=== PATIENT | male | born 1940 | race Caucasian/White ===

== ENCOUNTER → 2023-12-29 09:13 | Outpatient (REF) | payer OTHER, SELFPAY | LOC: DHSLP 09:13 | PROVIDERS: ATTENDING PHYSICIAN Internal Medicine; FAMILY PHYSICIAN Student in an Organized Health Care Education/Training Program | DX: G47.33 Obstructive sleep apnea (adult) (pediatric) (principal); G47.31 Primary central sleep apnea | CPT/HCPCS: 95811 ==

== ENCOUNTER 2025-01-25 09:47 | Emergency (ER) | payer OTHER, SELFPAY ==
[2025-01-25 09:48] VITALS: BP 156/68
--- NOTE | 2025-01-25 10:47 | ED.GENMED ---
History of Present Illness
General
Chief Complaint: Dizziness
Source: patient
Exam Limitations: none
Time Seen by Provider: 01/25/25 10:26
History of Present Illness
History of Present Illness:
See MDM
Past History
Past History
ED Past Medical History: CAD and HTN
ED Past Surgical History: Cardiac and Orthopedic
Social History
Tobacco: Non-smoker
Alcohol: None
Drug: None
Phy Exam
Physical Exam
Physical Exam:
See MDM
Course
Orders/Labs/Results
Orders:
Orders
01/25/25 09:51
Electrocardiogram (*1) Urgent
Reason for Study: Vertigo / Dizzy
EKG- Treatment ONCE
01/25/25 10:44
0.9% Sodium Chloride 1000 ml [Nss] 1,000 ml IV BOLUS
Meclizine [Antivert] 25 mg PO NOW STA
01/25/25 11:15
Complete Blood Count/With Diff Urgent
Comprehensive Metabolic Panel Urgent
Abnormal Lab Results
01/25/25
11:15
RBC 4.41 L 10^6/uL
(4.70-6.10)
MCV 95.9 H fL
(80.0-94.0)
MCH 32.4 H pg
(27.0-31.0)
MPV 11.3 H fL
(7.4-10.4)
Creatinine 0.6 L mg/dL
(0.7-1.3)
Glucose 127 H mg/dl
(70-99)
01/25/25 11:15
01/25/25 11:15
Vital Signs
Initial and Last Documented VS:
Initial Vital Signs
Temp Pulse Resp BP Pulse Ox
97.5 F 54 16 156/68 98
01/25/25 09:48 01/25/25 09:48 01/25/25 09:48 01/25/25 09:48 01/25/25 09:48
Last Documented Vital Signs
Temp Pulse Resp BP Pulse Ox
97.5 F 57 16 117/81 98
01/25/25 09:48 01/25/25 11:18 01/25/25 11:18 01/25/25 11:18 01/25/25 11:18
MDM/Problems Addressed
Differential Diagnosis Includes:
Note:
CHIEF COMPLAINT(S)
Dizziness
HISTORY OF PRESENT ILLNESS
The patient is an 84-year-old male who presented with dizziness, reported as more of a lightheaded sensation rather than vertigo but he does acknowledge that parts of the room were spinning. The condition started when the patient woke up and has
been persistent. The patient reported no headache, no hearing loss, and no recent viral illnesses. He indicated that symptoms worsen when standing up. He mentioned, 'At some point, was the room moving? Yes,' indicating a history of vertiginous
episodes. The patient denied having experienced similar symptoms in the past.
PHYSICAL EXAM
General: Alert, no acute distress.
Skin: Warm, dry.
Head: Normocephalic, atraumatic.
Neck: Supple, trachea midline.
Eye, Ears, Nose, Mouth, and Throat: Oral mucosa moist. Ears examined and are devoid of cerumen and abnormalities. Pupils equal and reactive
Cardiovascular: Normal peripheral perfusion, no edema noted.. Regular rate and rhythm
Respiratory: Respirations are non-labored.
Gastrointestinal: Abdomen is nondistended.
Back: Normal range of motion, normal alignment.
Musculoskeletal: Normal range of motion, normal strength.
Neurological: no focal neurological deficits. Patient performed fine with hlrhgt-ziet-[id number] test exhibiting no signs of ataxia. Positive [place]-Hallpike to the left with fatigable horizontal nystagmus
Psychiatric: Cooperative, appropriate mood and affect.
PLAN
1. Perform blood work.
2. Administer fluids to address possible dehydration.
3. Administer Meclizine (Antivert) to manage vertigo.
4. Monitor patients condition to ensure improvement before potential discharge.
DIFFERENTIAL DIAGNOSIS
The Differential Diagnosis includes, in no particular order and is not limited to:
1. Benign Paroxysmal Positional Vertigo (BPPV)
2. Orthostatic Hypotension
3. Dehydration
4. Vestibular Neuritis
5. Labyrinthitis
6. Transient Ischemic Attack (TIA)
7. Stroke
8. Menieres Disease
9. Medication Side Effects
10. Vestibular Migraine
EKG
My independent EKG interpretation is:
- Time of EKG: Not provided
- Rhythm: Sinus bradycardia
- Heart Rate: 52 beats per minute
- MA Interval: First degree AV block
- Notable Abnormalities: Premature ventricular complexes
- [place]: Normal
- ST Segment: No ST elevation myocardial infarction (STEMI) observed
CARE-UPDATE
01/25/25 - 12:52
Patient reports feeling better overall, except for dizziness that occurs with movement. Blood work results are satisfactory. A prescription for medication to address dizziness, to be used on an as-needed basis, was provided. Patient advised to
consider consultation with an ear, nose, and throat (ENT) specialist for potential vestibular therapy. Discussion included the possibility of a mini-stroke or small stroke, with consideration for MRI should symptoms persist. Patient reassured that
while certain conditions, such as tumors or strokes in the brain, are unlikely, they should be monitored. The possibility of heart rate issues contributing to symptoms was discussed, with symptomatic bradycardia noted as unlikely given the
presentation. Further monitoring and adaptation of treatment plan necessary based on symptom progression.
Disposition:
SUMMARY OF ENCOUNTER
The patient, an 84-year-old male, presented to the emergency department with dizziness described as lightheadedness. The dizziness worsened upon standing. The patient admitted to a history of occasional vertiginous episodes. Throughout the
observation, the patient was found to be bradycardic but was otherwise in no acute distress. He received intravenous fluids and Meclizine to manage his symptoms, which improved his condition. The patient was closely monitored, bradycardia was noted,
and it was acknowledged that his weekday babysitter is considering a pacemaker. Follow-up with an ENT specialist was recommended for potential vestibular therapy.
DISPOSITION
Discharge.
ASSESSMENT
- Benign Paroxysmal Positional Vertigo (BPPV)
- Bradycardia
- Dehydration
EMERGENCY TREATMENTS ADMINISTERED
Intravenous fluids and Meclizine (Meclizine HCl).
REASSESSMENT
Patient reported feeling better throughout multiple reassessments and was able to ambulate to the bathroom without difficulty.
PLAN
- Administer Meclizine as needed for dizziness.
- Continue IV fluids as deemed necessary.
- Advise on monitoring symptoms and return precautions.
PATIENT EDUCATION AND COUNSELING
The patient was informed about the nature of their condition, the potential for an underlying cerebellar infarct, and the need for outpatient MRI if symptoms persist. The importance of follow-up with both an ENT specialist for vestibular therapy and
the weekday babysitter, given the bradycardia, was discussed.
FOLLOW-UP INSTRUCTIONS
The patient was advised to follow-up with their ENT specialist for possible vestibular therapy and with their weekday babysitter regarding bradycardia management.
MEDICATION RECONCILIATION
Prescription for Meclizine, administered as needed.
MEDICAL DECISION MAKING
- Complexity of Data Reviewed: Chronic conditions affecting care include noted bradycardia and history of vertigo episodes. Differential diagnosis considered BPPV, orthostatic hypotension, and other conditions as per initial differential.
- Data:
- Category 1: My independent EKG interpretation is sinus bradycardia.
- Category 3: Discussed management with the patients weekday babysitter team regarding pacemaker consideration.
- Risk: Prescription medication management was prescribed. Consideration of Admission/Observation: Escalation of care including admission/observation was considered given the complexity and risk of the patients presenting complaint, exam findings,
and/or their underlying comorbidities. However, ultimately I feel the patient is safe for outpatient management with close follow-up. Reasoning: Work-up reassuring, does not reveal any acute life/organ-threatening processes, patients symptoms well
controlled upon reevaluation, reexamination is reassuring, vitals are stable, patient agreeable with discharge, reliable for follow-up.
DIAGNOSIS
- Benign Paroxysmal Positional Vertigo (H81.11)
- Bradycardia, Unspecified (R00.1)
- Dehydration (E86.0)
*Pulse Oximetry
SaO2: 98
Oxygen Mode of Delivery: Room air
Patient hypoxic: no
*Critical Care Note
Total Time (30-74mins, 75-104mins- exclusive of procedures): Not Applicable
ED Attending Note
-
Portions of this chart may have been created with voice recognition software.� Occasional wrong word or��sound alike� substitutions may have occurred due to the inherent limitations of voice recognition software.
Discharge Plan
Departure
Patient Disposition: Home (Routine Discharge)
Date of Disposition: 01/25/25
Time of Disposition: 13:07
Patient with high blood pressure during this ER visit?: No
Discharge Problem:
Benign paroxysmal positional vertigo, Bradycardia
Instructions: Vertigo (a Type of Dizziness) (DC)
Prescriptions:
New
meclizine [Antivert] 25 mg Tablet,Chewable
25 mg PO BIDPRN PRN (Reason: nausea or vertigo) Qty: 10 0RF
Referrals:
Ron Juarez MD [Active, Otology]
Michaela Gallardo PA-C [Family Provider]
Activity Restrictions/Additional Instructions:
Please return for any worsening symptoms.
You may return at any time if you have further concerns.
Please follow up with your doctor at the first available appointment, preferably this week.
Please follow-up with ENT.
Thank you for choosing [facility].
Interventions
Interventions:
*Risk Screen - Suicide Last Done: 01/25/25 09:48
*Neglect/Abuse Screening Last Done: 01/25/25 09:48
ED- Neurological Assessment Last Done: 01/25/25 11:15
Discharge Date and Time
Print Language: KOREAN
[2025-01-25 11:17] VITALS: BMI 35.5
[2025-01-25 11:18] VITALS: BP 117/81
[2025-01-25 11:19] VITALS: BP 117/81
[2025-01-25] MEDS: ANTIVERT 25 MG PO (11:20)
[2025-01-25] MEDS: NSS 1000 IV (11:24)
[2025-01-25 11:25] LABS: Hematocrit 42.3 % (39.0-52.0); Hemoglobin 14.3 g/dL (13.0-18.0); Mean Corp Hgb Conc. 33.8 g/dL (33.0-37.0); Mean Corpuscular Volume 95.9 fL (80.0-94.0); Nucleated Red Blood Cells % 0 % (-); Platelet Count 224 10^3/uL (130-400); Red Cell Dist. Width 13.2 % (11.5-14.5)
[2025-01-25 11:43] LABS: ALT (SGPT) 19 U/L (0-50); AST (SGOT) 22 U/L (17-59); Albumin 4.3 g/dl (3.5-5.0); Alkaline Phosphatase 44 U/L (38-126); Blood Urea Nitrogen 20 mg/dl (9-20); Calcium 9.2 mg/dl (8.4-10.2); Carbon Dioxide 27 mmol/L (22-30); Chloride 107 mmol/L (98-107); Estimated Creatinine Clearance 110 ml/min; Glucose 127 mg/dl (70-99); Potassium 3.9 mmol/L (3.5-5.1); Sodium 140 mmol/L (135-145); Total Protein 7.3 g/dl (6.3-8.2); eGFR > 60.00
[2025-01-25 12:00] VITALS: BP 147/60
[2025-01-25 13:00] VITALS: BP 99/46
== END 2025-01-25 13:54 | disposition home or self-care (01) ==
LOC: EMR 09:47
PROVIDERS: EMERGENCY PHYSICIAN Student in an Organized Health Care Education/Training Program; FAMILY PHYSICIAN Physician Assistant
DX: H81.10 Benign paroxysmal vertigo, unspecified ear (principal); R00.1 Bradycardia, unspecified; E86.0 Dehydration
CPT/HCPCS: 99284; 80053; 85025; 93005

== ENCOUNTER 2025-07-03 07:26 | Outpatient (RCR) | payer OTHER, SELFPAY | END 2025-07-03 23:59 | disposition home or self-care (01) | LOC: RPT 07:26 | PROVIDERS: ATTENDING PHYSICIAN Student in an Organized Health Care Education/Training Program; FAMILY PHYSICIAN Physician Assistant | DX: M79.672 Pain in left foot (principal); Z73.6 Limitation of activities due to disability; R26.2 Difficulty in walking, not elsewhere classified; M62.81 Muscle weakness (generalized); R26.89 Other abnormalities of gait and mobility | CPT/HCPCS: 97010; 97110; 97140; 97162 ==